=== PATIENT | male | born 1970 | race Caucasian/White ===

== ENCOUNTER → 2021-11-13 09:50 | Outpatient (CLI) | payer BC, SELFPAY ==
[2021-11-13 12:21] LABS: COVID19 -Nasal RAPID Negative (Negative)
== END ==
PROVIDERS: Visit Provider Nurse Practitioner Family
DX: Z01.812 Encounter for preprocedural laboratory examination (principal); Z20.822 Contact with and (suspected) exposure to COVID-19
CPT/HCPCS: 87635

== ENCOUNTER 2021-11-15 12:37 | Day surgery (SDC) | payer BC, SELFPAY ==
--- NOTE | 2021-11-15 12:03 | P.HP_ITS ---
History of Present Illness History of Present Illness Date Patient Seen: 11/15/21 Time Patient Seen: 12:03 [place] [facility] [place]: 51 year old male patient is here for a consideration of a screening colonoscopy. There have been no lower GI symptoms suggesting disease such as change in bowel habits, bleeding, abdominal pain or anemia. There's been no family history of colon cancer or colon polyps. Overall health issues have been stable, including no major cardiac events for at least 6 weeks. Past Medical History: Broken bones Past Surgical History: Vasectomy Family History: Father: at 72 Acute Leukemia, major stroke at 56, Hypertension, Hyperlipidemia Mother: Hyperlipidemia Siblings: Social History: Marital Status: - Saranya (1974) - [employer] Children: Lindachele (2000), Dez (2003), Aminata (2008) Occupation: Psychology Lecturer - [employer] Alcohol drinks/day: 1/day Caffeine use/day: 2 Type of Exercise: bike, tennis, pickleball Guns in home: no Meds Home Medications and Allergies Allergies Allergy/AdvReac Type Severity Reaction Status Date / Time No Known Drug Allergies Allergy Verified 11/15/21 13:02 Review of Systems Review of Systems Narrative: All remaining ROS were reviewed and negative except as addressed. Exam Narrative Exam Narrative: GENERAL: Alert and oriented, appearing stated age and in no acute distress. HEENT: Head normocephalic/atraumatic. Extraocular movements intact. LUNGS: Clear to ausculation bilaterally, no wheezes, rhonchi or rales. CV: Normal S1 and S2 with regular rate and rhythm, no audible murmurs, rubs or gallops. ABDOMEN: Soft, non-tender, non-distended, no organomegaly. Positive bowel sounds. EXTREMITIES: No clubbing, cyanosis, or edema. NEURO: Cranial nerves II through XII grossly intact, no focal deficits. PSYCH: Alert and oriented x 3. SKIN: No concerning lesions. Assessment & Plan Assessment & Plan narrative: 1. Screening for colon cancer Plan for colonoscopy. The nature and character of the procedure as well as anticipated results were discussed. The possibility of not completing the procedure was also discussed. Possible complications including aspiration pneumonia, bleeding, perforation and reaction to medications either for sedation or preparation and missed lesions were discussed. Questions were answered and proceeding to the colonoscopy was elected. Informed consent signed. I sincerely appreciate the referral allowing me to participate in this patient's care. Please contact me with any questions or concerns.
--- NOTE | 2021-11-15 12:05 | PM.OP.COLON ---
Operative Date/Time/Diagnoses Date of procedure: 11/15/21 Time of procedure: 12:05 Procedure Notes Procedure in detail: ENDOSCOPIST: Scarlet Alfredo MD Sedation RN: Gloria Benoit RN Sedation start time: 1:59 p.m. Sedation end time: 2:21 p.m. PROCEDURE: Colonoscopy INDICATIONS: 1. Screening for colon cancer MEDICATION: Levsin 0.125 mg sublingual, incremental doses of Versed and fentanyl until appropriate level sedation achieved. ASA CLASS: 1 CECAL WITHDRAWAL TIME: 6 minutes COMPLICATIONS: None. EXTENT OF PROCEDURE: Cecum. QUALITY OF PREP: Good with portions of liquid stool. PROCEDURE: Prior to insertion of the colonoscope, a digital rectal examination was accomplished with circumferential palpation of the distal rectal mucosa without significant findings being noted. The high-definition colonoscope was passed into the rectum in the usual fashion and advanced over to the cecum without difficulty. The ileocecal valve, appendiceal stoma, and medial wall all could be inspected and no abnormalities were seen. ASCENDING COLON: As the colonoscope was withdrawn, care was taken to expose and inspect the haustral folds and no abnormalities were seen. HEPATIC FLEXURE: Normal, no polyps, diverticula or other abnormalities. TRANSVERSE COLON: Normal, no polyps, diverticula or other abnormalities. DESCENDING COLON: Normal, no polyps, diverticula or other abnormalities. SIGMOID COLON: Normal, no polyps, diverticula or other abnormalities. RECTUM: Normal. J maneuver was produced. There was no significant perianal disease. The J maneuver was broken. The remainder of the rectum was inspected and there was no external hemorrhoid disease. The scope was withdrawn. IMPRESSION: 1. Normal colonoscopy PLAN: 1. Repeat colonoscopy in 10 years. The possibility of a missed lesion including a malignancy has been discussed with the patient previously. Potential alarm symptoms have been discussed and should be reported immediately.
[2021-11-15 13:05] VITALS: BP 128/78; PULSE 68; RESP 12; TEMP 36.2; O2SAT 98; BMI 22.4
[2021-11-15] MEDS: LACTATED RINGERS 1,000 ML 200 ML IV (13:10)
[2021-11-15] MEDS: HYOSCYAMINE 0.125 MG TABLET PO (13:12)
[2021-11-15] MEDS: MIDAZOLAM 5 MG/5 ML VIAL IV ×2 (13:59→14:25)
[2021-11-15] MEDS: fentaNYL 250 MCG/5 ML INJ IV (13:59)
[2021-11-15 14:30] VITALS: BP 111/76; PULSE 55; RESP 14; TEMP 36.2; O2SAT 97
[2021-11-15 14:34] VITALS: BP 113/75; PULSE 50; RESP 15; O2SAT 97
[2021-11-15 14:35] VITALS: BP 118/72; PULSE 55; RESP 16; O2SAT 98
[2021-11-15 14:39] VITALS: BP 109/75; PULSE 48; RESP 16; TEMP 36.9; O2SAT 96
== END 2021-11-15 14:56 | disposition home or self-care (01) ==
PROVIDERS: PCP Student in an Organized Health Care Education/Training Program; Referring Provider Student in an Organized Health Care Education/Training Program; Visit Provider Student in an Organized Health Care Education/Training Program
PROC: 0DJD8ZZ Inspection of Lower Intestinal Tract, Via Natural or Artificial Opening Endoscopic (ICD-10-PCS; CPT 45378; principal; 2021-11-15 13:45)
DX: Z12.11 Encounter for screening for malignant neoplasm of colon (principal)
CPT/HCPCS: 45378; J2250; J3010

== ENCOUNTER → 2024-10-04 10:08 | Outpatient (CLI) | payer BC, SELFPAY ==
--- NOTE | 2024-10-04 10:10 | DI.RAD.S_ITS ---
PROCEDURE: XR HIP W PEL IF DONE LT 2V INDICATIONS: Pain in left hip TECHNIQUE: AP pelvis with lateral view(s) of the left hip(s). COMPARISON: None. FINDINGS: Bones: No fractures or dislocations. Symmetric appearing moderate bilateral hip joint osteoarthritic changes are seen with superior joint space narrowing, subchondral sclerosis and marginal osteophyte formation. No evidence of avascular necrosis of femoral head. Prominence of bilateral superior femoral head neck junction is seen which can be seen associated with cam type femoral acetabular impingement. Pelvic ring appears intact. No suspicious bony lesions. Soft tissues: The visualized bowel gas pattern is normal. No suspicious soft tissue calcifications. IMPRESSION: Symmetric appearing moderate bilateral hip joint osteoarthritis. No acute pelvic or hip fracture. Prominence of bilateral superior femoral head neck junction which can be seen associated cam type femoral acetabular impingement. No evidence of avascular necrosis of femoral heads. Dictated by: Winston Springer M.D. on 10/04/2024 at 17:02 Approved by: Winston Springer M.D. on 10/04/2024 at 17:03
== END ==
PROVIDERS: PCP Registered Nurse; Referring Provider Registered Nurse; Visit Provider Registered Nurse
DX: M16.0 Bilateral primary osteoarthritis of hip (principal); M25.552 Pain in left hip
CPT/HCPCS: 73502